=== PATIENT | male | born 1960 | race Caucasian/White ===

== ENCOUNTER 2023-05-03 02:37 | Inpatient (IN) | payer OTHER ==
[2023-05-03] MEDS ORDERED: cefTRIAXone (ROCEPHIN) 1 GM VIAL ONE (03:05)
[2023-05-03 04:05] LABS: #Basophils 0.1 10x3/uL (0.0-0.2); #Eosinphils 0.3 10x3/uL (0.0-0.5); #Monocytes 2.1 10x3/uL (0.0-1.1); #Neutrophils 11.3 10x3/uL (1.5-8.4); %Basophils 0.5 % (0.0-2.0); %Eosinophils 1.5 % (0.0-6.0); %Lymphocytes 13.6 % (18.0-47.0); %Monocytes 12.9 % (0.0-10.0); %Neutrophils 69.7 % (40.0-75.0); Hematocrit 38.1 % (38.8-50.0); Hemoglobin 13.6 g/dL (13.5-17.5); Mean Corpuscular HGB CONC 35.7 g/dL (32.0-36.0); Mean Corpuscular Hemoglobin 31.1 pg (27.0-33.0); Mean Corpuscular Volume 87.2 fl (81.2-95.1); Mean Platelet Volume 10.8 fl (7.4-10.4); Platelet Count 281 10x3/uL (150-450); RBC Distribution Width 12.3 % (11.5-14.5); Red Blood Cell (RBC) Count 4.37 10x6/uL (4.32-5.72); White Blood Cell (WBC) Count 16.2 10x3/uL (3.5-10.5)
[2023-05-03 04:28] LABS: Anion Gap 16 mmol/L (10-20); BUN (Urea Nitrogen) 12 mg/dL (8.4-25.7); Calc. Creatinine Clearance 0 mL/min (70-130); Calcium 8.9 mg/dL (7.8-10.44); Carbon Dioxide 25 mmol/L (23-31); Chloride 96 mmol/L (98-107); Estimated GFR 99; Glucose 132 mg/dL (80-115); Potassium 2.9 mmol/L (3.5-5.1); Sodium 134 mmol/L (136-145)
[2023-05-03] MEDS ORDERED: Potassium Chloride 20 MEQ TAB ONE (06:06)
[2023-05-03] MEDS ORDERED: Potassium Chloride 20 MEQ (100 mL) BAG ONE (06:07)
[2023-05-03] MEDS ORDERED: Ipratropium/Albuterol 3 ML NEB NEB PRN (08:10)
[2023-05-03] MEDS ORDERED: Calcium Carbonate 500 MG ChewTAB PO PRN (08:11)
[2023-05-03] MEDS ORDERED: Ondansetron ODT 4 MG TAB PO PRN (08:11)
[2023-05-03] MEDS ORDERED: Ondansetron PF 4 MG/2 ML Vial IVP PRN (08:11)
[2023-05-03] MEDS ORDERED: Senokot S 8.6-50 MG TAB PO PRN (08:11)
[2023-05-03 08:23] LABS: Magnesium 1.9 mg/dL (1.6-2.6); Phosphorus 3.4 mg/dL (2.3-4.7)
[2023-05-03] MEDS ORDERED: Ventolin HFA Inhaler 60 PUFF INHALER INH PRN (12:27)
[2023-05-03] MEDS ORDERED: Potassium Chloride 20 MEQ TAB PO SCH (12:30)
[2023-05-03 12:47] VITALS: BMI 46.3
[2023-05-03] MEDS ORDERED: VANCOMYCIN 2 GRAM/400 ML BAG 2 GM in Premix 1 BAG IVPB SCH (14:00)
[2023-05-03] MEDS ORDERED: Ipratropium/Albuterol 3 ML NEB NEB SCH (14:30)
[2023-05-03] MEDS: Furosemide 40 MG TAB PO SCH (14:41)
[2023-05-03] MEDS: Saccharomyces boulardii 250 MG CAP PO SCH (14:41)
[2023-05-03] MEDS: Cefepime 2 GM in Sodium Chloride 0.9% 100 ML IVPB SCH (14:42)
[2023-05-03] MEDS: Ipratropium Bromide 2.5 ml Neb NEB SCH ×2 (15:45→20:06)
[2023-05-03] MEDS ORDERED: Magnesium 2 GM/50 ML(in water) 2 GM in Premix 1 BAG IVPB SCH (16:00)
[2023-05-03 16:29] LABS: Potassium 3.5 mmol/L (3.5-5.1)
[2023-05-03] MEDS: Potassium Chloride 20 MEQ TAB PO SCH (17:07)
[2023-05-03] MEDS: Carvedilol 6.25 MG TAB PO SCH (18:07)
[2023-05-03] MEDS ORDERED: Budesonide 0.5 MG/2 ML NEB INH SCH (18:30)
[2023-05-03] MEDS: Mometasone 100 MCG/PUFF (1 INHALER) INH SCH (20:06)
[2023-05-03] MEDS ORDERED: cefTRIAXone\\ROCEPHIN 2 GM in Sodium Chloride 0.9% 100 ML IVPB SCH (21:00)
[2023-05-03] MEDS: Enoxaparin 40 MG (0.4 mL) SYRINGE SC SCH (21:30)
[2023-05-03] MEDS: Atorvastatin Calcium 40 MG TAB PO SCH (21:30)
[2023-05-04] MEDS: Cefepime 2 GM in Sodium Chloride 0.9% 100 ML IVPB SCH ×2 (00:29→13:32)
[2023-05-04] MEDS: VANCOMYCIN 1.75 GM/350 ML BAG 1.75 GM in Premix 1 BAG IVPB SCH ×2 (01:25→13:53)
[2023-05-04] MEDS: Acetaminophen 325 MG TAB PO PRN ×2 (02:53→20:47)
[2023-05-04 06:20] LABS: #Basophils 0.2 10x3/uL (0.0-0.2); #Eosinphils 0.4 10x3/uL (0.0-0.5); #Neutrophils 11.3 10x3/uL (1.5-8.4); %Basophils 0.8 % (0.0-2.0); %Eosinophils 2.1 % (0.0-6.0); %Lymphocytes 17.1 % (18.0-47.0); %Monocytes 11.5 % (0.0-10.0); Hematocrit 39.1 % (38.8-50.0); Hemoglobin 13.8 g/dL (13.5-17.5); Mean Corpuscular HGB CONC 35.3 g/dL (32.0-36.0); Mean Corpuscular Hemoglobin 31.7 pg (27.0-33.0); Mean Corpuscular Volume 89.7 fl (81.2-95.1); Mean Platelet Volume 11.3 fl (7.4-10.4); Platelet Count 307 10x3/uL (150-450); RBC Distribution Width 12.6 % (11.5-14.5); Red Blood Cell (RBC) Count 4.36 10x6/uL (4.32-5.72); White Blood Cell (WBC) Count 17.7 10x3/uL (3.5-10.5)
[2023-05-04] MEDS: Ipratropium Bromide 2.5 ml Neb NEB SCH ×4 (07:15→20:10)
[2023-05-04] MEDS: Mometasone 100 MCG/PUFF (1 INHALER) INH SCH ×2 (07:20→20:10)
[2023-05-04] MEDS: Lisinopril 20 MG TAB PO SCH (08:50)
[2023-05-04] MEDS: Loratadine 10 MG TAB PO SCH (08:51)
[2023-05-04] MEDS: Potassium Chloride 20 MEQ TAB PO SCH ×3 (08:51→17:52)
[2023-05-04] MEDS: Furosemide 40 MG TAB PO SCH ×2 (08:51→13:33)
[2023-05-04] MEDS: Carvedilol 6.25 MG TAB PO SCH ×2 (08:51→17:52)
[2023-05-04] MEDS ORDERED: OMEPRAZOLE 20 MG PO SCH (09:00)
[2023-05-04 09:43] LABS: ALT (SGPT) 39 U/L (8-55); AST (SGOT) 39 U/L (5-34); Albumin 3.4 g/dL (3.4-4.8); Alkaline Phosphatase 83 U/L (40-110); Anion Gap 19 mmol/L (10-20); BUN (Urea Nitrogen) 12 mg/dL (8.4-25.7); Bilirubin, Total 1.3 mg/dL (0.2-1.2); Calc. Creatinine Clearance 202 mL/min (70-130); Calcium 9.1 mg/dL (7.8-10.44); Carbon Dioxide 22 mmol/L (23-31); Chloride 99 mmol/L (98-107); Estimated GFR 103; Glucose 155 mg/dL (80-115); Magnesium 2.4 mg/dL (1.6-2.6); Potassium 3.5 mmol/L (3.5-5.1); Protein, Total 7.4 g/dL (5.8-8.1); Sodium 136 mmol/L (136-145)
[2023-05-04] MEDS: Saccharomyces boulardii 250 MG CAP PO SCH (13:33)
[2023-05-04 15:11] LABS: Hemoglobin A1c 6.1 % (4.0-6.0)
[2023-05-04] MEDS: Ibuprofen 200 MG TAB PO PRN (20:46)
[2023-05-04] MEDS: Atorvastatin Calcium 40 MG TAB PO SCH (20:49)
[2023-05-04] MEDS: Enoxaparin 40 MG (0.4 mL) SYRINGE SC SCH (20:49)
[2023-05-05 02:14] LABS: Vancomycin, Trough 13.6 ug/mL
[2023-05-05] MEDS: VANCOMYCIN 1.75 GM/350 ML BAG 1.75 GM in Premix 1 BAG IVPB SCH ×2 (02:55→14:40)
[2023-05-05 04:25] LABS: Hematocrit 36.9 % (38.8-50.0); Hemoglobin 12.7 g/dL (13.5-17.5); Mean Corpuscular HGB CONC 34.4 g/dL (32.0-36.0); Mean Corpuscular Hemoglobin 30.8 pg (27.0-33.0); Mean Corpuscular Volume 89.6 fl (81.2-95.1); Mean Platelet Volume 10.5 fl (7.4-10.4); Platelet Count 312 10x3/uL (150-450); RBC Distribution Width 12.5 % (11.5-14.5); Red Blood Cell (RBC) Count 4.12 10x6/uL (4.32-5.72); White Blood Cell (WBC) Count 15.6 10x3/uL (3.5-10.5)
[2023-05-05 04:33] LABS: Anion Gap 14 mmol/L (10-20); BUN (Urea Nitrogen) 12 mg/dL (8.4-25.7); Calc. Creatinine Clearance 205 mL/min (70-130); Calcium 8.5 mg/dL (7.8-10.44); Carbon Dioxide 25 mmol/L (23-31); Chloride 96 mmol/L (98-107); Estimated GFR 103; Glucose 116 mg/dL (80-115); Potassium 3.5 mmol/L (3.5-5.1); Sodium 131 mmol/L (136-145)
[2023-05-05 04:36] LABS: MDiff Complete? YES
[2023-05-05 05:12] LABS: Platelet Adequacy Comment Appears Adequate; RBC Morph Comment Within Normal Limits
[2023-05-05 05:14] LABS: Band 8 % (5-11); Eosinophils 5 % (0-10); Lymphocytes 20 % (21-51); Monocytes 9 % (0-10); Neutrophil 56 % (42-75); Reactive Lymphocytes 2 % (0-10)
[2023-05-05] MEDS: Mometasone 100 MCG/PUFF (1 INHALER) INH SCH ×2 (06:58→19:22)
[2023-05-05] MEDS: Ipratropium Bromide 2.5 ml Neb NEB SCH ×4 (06:58→19:22)
[2023-05-05] MEDS: Lisinopril 20 MG TAB PO SCH (09:04)
[2023-05-05] MEDS: Potassium Chloride 20 MEQ TAB PO SCH ×3 (09:05→16:45)
[2023-05-05] MEDS: Acetaminophen 325 MG TAB PO PRN ×2 (09:05→21:26)
[2023-05-05] MEDS: Carvedilol 6.25 MG TAB PO SCH ×2 (09:05→16:45)
[2023-05-05] MEDS: Loratadine 10 MG TAB PO SCH (09:05)
[2023-05-05] MEDS: Furosemide 40 MG TAB PO SCH ×2 (09:05→14:40)
[2023-05-05] MEDS: Ibuprofen 200 MG TAB PO PRN ×3 (11:46→23:55)
[2023-05-05] MEDS: Saccharomyces boulardii 250 MG CAP PO SCH (14:40)
[2023-05-05] MEDS: Enoxaparin 40 MG (0.4 mL) SYRINGE SC SCH (21:27)
[2023-05-05] MEDS: Atorvastatin Calcium 40 MG TAB PO SCH (21:27)
[2023-05-06] MEDS: VANCOMYCIN 1.75 GM/350 ML BAG 1.75 GM in Premix 1 BAG IVPB SCH ×2 (01:59→15:15)
[2023-05-06] MEDS: Acetaminophen 325 MG TAB PO PRN ×3 (01:59→22:37)
[2023-05-06] MEDS: Ibuprofen 200 MG TAB PO PRN ×2 (05:46→15:41)
[2023-05-06 05:54] LABS: Hematocrit 38.6 % (38.8-50.0); Hemoglobin 13.7 g/dL (13.5-17.5); Mean Corpuscular HGB CONC 35.5 g/dL (32.0-36.0); Mean Corpuscular Hemoglobin 31.9 pg (27.0-33.0); Mean Corpuscular Volume 89.8 fl (81.2-95.1); Mean Platelet Volume 10.6 fl (7.4-10.4); Platelet Count 395 10x3/uL (150-450); RBC Distribution Width 12.4 % (11.5-14.5); White Blood Cell (WBC) Count 14.9 10x3/uL (3.5-10.5)
[2023-05-06 05:56] LABS: ALT (SGPT) 55 U/L (8-55); AST (SGOT) 36 U/L (5-34); Albumin 3.1 g/dL (3.4-4.8); Alkaline Phosphatase 70 U/L (40-110); Anion Gap 15 mmol/L (10-20); BUN (Urea Nitrogen) 9 mg/dL (8.4-25.7); Bilirubin, Total 0.6 mg/dL (0.2-1.2); Calc. Creatinine Clearance 196 mL/min (70-130); Calcium 8.9 mg/dL (7.8-10.44); Carbon Dioxide 25 mmol/L (23-31); Chloride 100 mmol/L (98-107); Estimated GFR 102; Globulin 4.1 g/dL (2.4-3.5); Glucose 108 mg/dL (80-115); Protein, Total 7.2 g/dL (5.8-8.1); Sodium 136 mmol/L (136-145)
[2023-05-06 06:34] LABS: MDiff Complete? YES
[2023-05-06 06:35] LABS: Platelet Adequacy Comment Appears Adequate; RBC Morph Comment Within Normal Limits
[2023-05-06 06:37] LABS: Band 9 % (5-11); Eosinophils 4 % (0-10); Lymphocytes 24 % (21-51); Monocytes 8 % (0-10); Neutrophil 55 % (42-75)
[2023-05-06] MEDS: Ipratropium Bromide 2.5 ml Neb NEB SCH ×4 (07:32→19:04)
[2023-05-06] MEDS: Mometasone 100 MCG/PUFF (1 INHALER) INH SCH ×2 (07:37→19:04)
[2023-05-06] MEDS: Loratadine 10 MG TAB PO SCH (08:25)
[2023-05-06] MEDS: Furosemide 40 MG TAB PO SCH ×2 (08:25→15:14)
[2023-05-06] MEDS: Lisinopril 20 MG TAB PO SCH (08:25)
[2023-05-06] MEDS: Carvedilol 6.25 MG TAB PO SCH ×2 (08:25→16:42)
[2023-05-06] MEDS: Potassium Chloride 20 MEQ TAB PO SCH ×2 (08:26→16:43)
[2023-05-06 13:32] LABS: Vancomycin, Trough 11.7 ug/mL
[2023-05-06] MEDS: Saccharomyces boulardii 250 MG CAP PO SCH (15:14)
[2023-05-06] MEDS: cefTRIAXone\\ROCEPHIN 2 GM in Sodium Chloride 0.9% 100 ML IVPB SCH (15:14)
[2023-05-06] MEDS: Atorvastatin Calcium 40 MG TAB PO SCH (22:33)
[2023-05-06] MEDS: Enoxaparin 40 MG (0.4 mL) SYRINGE SC SCH (22:33)
[2023-05-07] MEDS: Ibuprofen 200 MG TAB PO PRN ×3 (00:17→22:19)
[2023-05-07] MEDS: VANCOMYCIN 1.75 GM/350 ML BAG 1.75 GM in Premix 1 BAG IVPB SCH ×2 (02:51→14:25)
[2023-05-07 06:52] LABS: Hematocrit 37.6 % (38.8-50.0); Hemoglobin 12.9 g/dL (13.5-17.5); Mean Corpuscular HGB CONC 34.3 g/dL (32.0-36.0); Mean Corpuscular Hemoglobin 31.4 pg (27.0-33.0); Mean Corpuscular Volume 91.5 fl (81.2-95.1); Mean Platelet Volume 10.3 fl (7.4-10.4); Platelet Count 390 10x3/uL (150-450); RBC Distribution Width 12.3 % (11.5-14.5); Red Blood Cell (RBC) Count 4.11 10x6/uL (4.32-5.72); White Blood Cell (WBC) Count 15.9 10x3/uL (3.5-10.5)
[2023-05-07 06:53] LABS: MDiff Complete? YES
[2023-05-07 07:01] LABS: Anion Gap 13 mmol/L (10-20); BUN (Urea Nitrogen) 7 mg/dL (8.4-25.7); Calc. Creatinine Clearance 225 mL/min (70-130); Calcium 8.8 mg/dL (7.8-10.44); Carbon Dioxide 28 mmol/L (23-31); Chloride 99 mmol/L (98-107); Estimated GFR 106; Glucose 115 mg/dL (80-115); Sodium 136 mmol/L (136-145)
[2023-05-07] MEDS: Ipratropium Bromide 2.5 ml Neb NEB SCH ×4 (07:01→20:25)
[2023-05-07] MEDS: Mometasone 100 MCG/PUFF (1 INHALER) INH SCH ×2 (07:03→20:25)
[2023-05-07] MEDS: Lisinopril 20 MG TAB PO SCH (08:00)
[2023-05-07] MEDS: Furosemide 40 MG TAB PO SCH (08:07)
[2023-05-07] MEDS: Potassium Chloride 20 MEQ TAB PO SCH ×2 (08:07→16:27)
[2023-05-07] MEDS: Carvedilol 6.25 MG TAB PO SCH ×2 (08:07→16:26)
[2023-05-07] MEDS: Loratadine 10 MG TAB PO SCH (08:08)
[2023-05-07 08:39] LABS: Band 4 % (5-11); Eosinophils 3 % (0-10); Lymphocytes 18 % (21-51); Monocytes 12 % (0-10); Neutrophil 63 % (42-75)
[2023-05-07 08:44] LABS: Platelet Adequacy Comment Appears Adequate; RBC Morph Comment Within Normal Limits
[2023-05-07] MEDS ORDERED: Iopamidol 300 61% 100 ML VIAL FS ONE (10:26)
[2023-05-07] MEDS: Saccharomyces boulardii 250 MG CAP PO SCH (14:59)
[2023-05-07] MEDS: cefTRIAXone\\ROCEPHIN 2 GM in Sodium Chloride 0.9% 100 ML IVPB SCH (15:00)
[2023-05-07] MEDS: Atorvastatin Calcium 40 MG TAB PO SCH (22:19)
[2023-05-07] MEDS: Enoxaparin 40 MG (0.4 mL) SYRINGE SC SCH (22:20)
[2023-05-08] MEDS: VANCOMYCIN 1.75 GM/350 ML BAG 1.75 GM in Premix 1 BAG IVPB SCH ×2 (02:55→14:53)
[2023-05-08 04:39] LABS: #Basophils 0.1 10x3/uL (0.0-0.2); #Eosinphils 0.3 10x3/uL (0.0-0.5); #Monocytes 1.6 10x3/uL (0.0-1.1); #Neutrophils 11.6 10x3/uL (1.5-8.4); %Basophils 0.6 % (0.0-2.0); %Eosinophils 1.7 % (0.0-6.0); %Lymphocytes 17.3 % (18.0-47.0); %Monocytes 9.1 % (0.0-10.0); %Neutrophils 67.7 % (40.0-75.0); Hemoglobin 12.6 g/dL (13.5-17.5); Mean Corpuscular HGB CONC 34.1 g/dL (32.0-36.0); Mean Corpuscular Hemoglobin 31.3 pg (27.0-33.0); Mean Platelet Volume 10.8 fl (7.4-10.4); Platelet Count 394 10x3/uL (150-450); RBC Distribution Width 12.3 % (11.5-14.5); Red Blood Cell (RBC) Count 4.02 10x6/uL (4.32-5.72); White Blood Cell (WBC) Count 17.1 10x3/uL (3.5-10.5)
[2023-05-08 04:51] LABS: Anion Gap 14 mmol/L (10-20); BUN (Urea Nitrogen) 8 mg/dL (8.4-25.7); Calc. Creatinine Clearance 221 mL/min (70-130); Calcium 8.9 mg/dL (7.8-10.44); Carbon Dioxide 24 mmol/L (23-31); Chloride 99 mmol/L (98-107); Estimated GFR 106; Glucose 102 mg/dL (80-115); Sodium 133 mmol/L (136-145)
[2023-05-08] MEDS: Acetaminophen 325 MG TAB PO PRN ×4 (05:23→23:14)
[2023-05-08] MEDS: Ipratropium Bromide 2.5 ml Neb NEB SCH ×4 (06:55→19:55)
[2023-05-08] MEDS: Mometasone 100 MCG/PUFF (1 INHALER) INH SCH ×2 (09:52→19:55)
[2023-05-08] MEDS: Ibuprofen 200 MG TAB PO PRN ×2 (09:53→17:11)
[2023-05-08] MEDS: Loratadine 10 MG TAB PO SCH (09:54)
[2023-05-08] MEDS: Lisinopril 20 MG TAB PO SCH (09:54)
[2023-05-08] MEDS: Carvedilol 6.25 MG TAB PO SCH ×2 (09:54→17:12)
[2023-05-08] MEDS: Potassium Chloride 20 MEQ TAB PO SCH ×2 (09:55→17:12)
[2023-05-08] MEDS: Furosemide 40 MG TAB PO SCH ×2 (09:55→14:53)
[2023-05-08] MEDS: Enoxaparin 40 MG (0.4 mL) SYRINGE SC SCH ×2 (09:55→22:31)
[2023-05-08 13:30] LABS: Vancomycin, Trough 12.8 ug/mL
[2023-05-08] MEDS: Saccharomyces boulardii 250 MG CAP PO SCH (14:53)
[2023-05-08] MEDS: Atorvastatin Calcium 40 MG TAB PO SCH (22:31)
[2023-05-09] MEDS: VANCOMYCIN 1.75 GM/350 ML BAG 1.75 GM in Premix 1 BAG IVPB SCH ×2 (03:00→14:37)
[2023-05-09] MEDS: Ibuprofen 200 MG TAB PO PRN (03:15)
[2023-05-09 04:21] LABS: #Basophils 0.1 10x3/uL (0.0-0.2); #Eosinphils 0.3 10x3/uL (0.0-0.5); #Monocytes 1.4 10x3/uL (0.0-1.1); #Neutrophils 12.4 10x3/uL (1.5-8.4); %Basophils 0.6 % (0.0-2.0); %Eosinophils 1.6 % (0.0-6.0); %Lymphocytes 15.5 % (18.0-47.0); %Monocytes 8.3 % (0.0-10.0); %Neutrophils 71.6 % (40.0-75.0); Hematocrit 37.3 % (38.8-50.0); Hemoglobin 12.8 g/dL (13.5-17.5); Mean Corpuscular HGB CONC 34.3 g/dL (32.0-36.0); Mean Corpuscular Hemoglobin 31.4 pg (27.0-33.0); Mean Corpuscular Volume 91.6 fl (81.2-95.1); Mean Platelet Volume 10.4 fl (7.4-10.4); Platelet Count 447 10x3/uL (150-450); RBC Distribution Width 12.3 % (11.5-14.5); Red Blood Cell (RBC) Count 4.07 10x6/uL (4.32-5.72); White Blood Cell (WBC) Count 17.3 10x3/uL (3.5-10.5)
[2023-05-09 04:27] LABS: Anion Gap 13 mmol/L (10-20); BUN (Urea Nitrogen) 7 mg/dL (8.4-25.7); CRP (Inflammatory) 13.07 mg/dL (= or < 0.5); Calc. Creatinine Clearance 221 mL/min (70-130); Carbon Dioxide 26 mmol/L (23-31); Chloride 99 mmol/L (98-107); Estimated GFR 106; Glucose 111 mg/dL (80-115); Potassium 4.1 mmol/L (3.5-5.1); Sodium 134 mmol/L (136-145)
[2023-05-09] MEDS: Ipratropium Bromide 2.5 ml Neb NEB SCH ×4 (07:55→19:28)
[2023-05-09] MEDS: Mometasone 100 MCG/PUFF (1 INHALER) INH SCH ×2 (08:00→19:27)
[2023-05-09] MEDS: Furosemide 40 MG TAB PO SCH ×2 (09:18→14:37)
[2023-05-09] MEDS: Enoxaparin 40 MG (0.4 mL) SYRINGE SC SCH ×2 (09:18→21:51)
[2023-05-09] MEDS: Lisinopril 20 MG TAB PO SCH (09:18)
[2023-05-09] MEDS: Carvedilol 6.25 MG TAB PO SCH ×2 (09:18→16:57)
[2023-05-09] MEDS: Acetaminophen 325 MG TAB PO PRN ×2 (09:18→16:57)
[2023-05-09] MEDS: Potassium Chloride 20 MEQ TAB PO SCH ×2 (09:18→16:57)
[2023-05-09] MEDS: Loratadine 10 MG TAB PO SCH (09:20)
[2023-05-09] MEDS: Saccharomyces boulardii 250 MG CAP PO SCH (14:37)
[2023-05-09] MEDS: Atorvastatin Calcium 40 MG TAB PO SCH (21:50)
[2023-05-10] MEDS: VANCOMYCIN 1.75 GM/350 ML BAG 1.75 GM in Premix 1 BAG IVPB SCH ×2 (03:28→14:22)
[2023-05-10] MEDS: Acetaminophen 325 MG TAB PO PRN ×2 (03:29→14:17)
[2023-05-10] MEDS: Ibuprofen 200 MG TAB PO PRN ×3 (03:29→21:30)
[2023-05-10 03:59] LABS: #Basophils 0.1 10x3/uL (0.0-0.2); #Eosinphils 0.3 10x3/uL (0.0-0.5); #Monocytes 1.5 10x3/uL (0.0-1.1); #Neutrophils 11.7 10x3/uL (1.5-8.4); %Basophils 0.6 % (0.0-2.0); %Eosinophils 1.8 % (0.0-6.0); %Lymphocytes 15.4 % (18.0-47.0); %Neutrophils 71.2 % (40.0-75.0); Hemoglobin 12.8 g/dL (13.5-17.5); Mean Corpuscular HGB CONC 33.7 g/dL (32.0-36.0); Mean Corpuscular Hemoglobin 31.1 pg (27.0-33.0); Mean Corpuscular Volume 92.5 fl (81.2-95.1); Mean Platelet Volume 10.2 fl (7.4-10.4); Platelet Count 453 10x3/uL (150-450); RBC Distribution Width 12.2 % (11.5-14.5); Red Blood Cell (RBC) Count 4.11 10x6/uL (4.32-5.72); White Blood Cell (WBC) Count 16.4 10x3/uL (3.5-10.5)
[2023-05-10 04:06] LABS: Anion Gap 14 mmol/L (10-20); BUN (Urea Nitrogen) 7 mg/dL (8.4-25.7); Calc. Creatinine Clearance 218 mL/min (70-130); Calcium 9.1 mg/dL (7.8-10.44); Carbon Dioxide 26 mmol/L (23-31); Chloride 97 mmol/L (98-107); Estimated GFR 105; Glucose 110 mg/dL (80-115); Potassium 4.2 mmol/L (3.5-5.1); Sodium 133 mmol/L (136-145)
[2023-05-10] MEDS: Ipratropium Bromide 2.5 ml Neb NEB SCH ×4 (07:10→19:18)
[2023-05-10] MEDS: Mometasone 100 MCG/PUFF (1 INHALER) INH SCH ×2 (07:15→19:17)
[2023-05-10] MEDS: Potassium Chloride 20 MEQ TAB PO SCH ×2 (08:41→17:34)
[2023-05-10] MEDS: Carvedilol 6.25 MG TAB PO SCH ×2 (08:43→17:35)
[2023-05-10] MEDS: Lisinopril 20 MG TAB PO SCH (09:42)
[2023-05-10] MEDS: Furosemide 40 MG TAB PO SCH ×2 (09:43→14:23)
[2023-05-10] MEDS: Enoxaparin 40 MG (0.4 mL) SYRINGE SC SCH ×2 (09:43→21:08)
[2023-05-10] MEDS: Loratadine 10 MG TAB PO SCH (09:44)
[2023-05-10] MEDS: Saccharomyces boulardii 250 MG CAP PO SCH (14:23)
[2023-05-10] MEDS: Atorvastatin Calcium 40 MG TAB PO SCH (21:09)
[2023-05-11] MEDS: Acetaminophen 325 MG TAB PO PRN ×2 (00:25→13:53)
[2023-05-11] MEDS: VANCOMYCIN 1.75 GM/350 ML BAG 1.75 GM in Premix 1 BAG IVPB SCH ×2 (01:54→13:41)
[2023-05-11 04:23] LABS: #Basophils 0.1 10x3/uL (0.0-0.2); #Eosinphils 0.3 10x3/uL (0.0-0.5); #Monocytes 1.4 10x3/uL (0.0-1.1); #Neutrophils 9.8 10x3/uL (1.5-8.4); %Basophils 0.4 % (0.0-2.0); %Eosinophils 2.1 % (0.0-6.0); %Lymphocytes 19.3 % (18.0-47.0); %Monocytes 9.7 % (0.0-10.0); %Neutrophils 67.1 % (40.0-75.0); Hematocrit 37.8 % (38.8-50.0); Hemoglobin 12.8 g/dL (13.5-17.5); Mean Corpuscular HGB CONC 33.9 g/dL (32.0-36.0); Mean Corpuscular Hemoglobin 31.4 pg (27.0-33.0); Mean Corpuscular Volume 92.9 fl (81.2-95.1); Mean Platelet Volume 10.4 fl (7.4-10.4); Platelet Count 451 10x3/uL (150-450); RBC Distribution Width 12.1 % (11.5-14.5); Red Blood Cell (RBC) Count 4.07 10x6/uL (4.32-5.72); White Blood Cell (WBC) Count 14.6 10x3/uL (3.5-10.5)
[2023-05-11 04:44] LABS: Anion Gap 15 mmol/L (10-20); BUN (Urea Nitrogen) 10 mg/dL (8.4-25.7); Calc. Creatinine Clearance 221 mL/min (70-130); Calcium 8.9 mg/dL (7.8-10.44); Carbon Dioxide 25 mmol/L (23-31); Chloride 94 mmol/L (98-107); Estimated GFR 106; Glucose 99 mg/dL (80-115); Potassium 4.2 mmol/L (3.5-5.1); Sodium 130 mmol/L (136-145)
[2023-05-11] MEDS: Ipratropium Bromide 2.5 ml Neb NEB SCH ×4 (06:50→21:20)
[2023-05-11] MEDS: Mometasone 100 MCG/PUFF (1 INHALER) INH SCH ×2 (06:55→21:20)
[2023-05-11] MEDS: Enoxaparin 40 MG (0.4 mL) SYRINGE SC SCH ×2 (07:52→21:22)
[2023-05-11] MEDS: Carvedilol 6.25 MG TAB PO SCH ×2 (07:52→17:00)
[2023-05-11] MEDS: Furosemide 40 MG TAB PO SCH ×2 (07:52→13:44)
[2023-05-11] MEDS: Loratadine 10 MG TAB PO SCH (07:53)
[2023-05-11] MEDS: Potassium Chloride 20 MEQ TAB PO SCH ×2 (07:53→16:57)
[2023-05-11] MEDS: Lisinopril 20 MG TAB PO SCH (07:53)
[2023-05-11] MEDS: Ibuprofen 200 MG TAB PO PRN ×2 (07:56→19:11)
[2023-05-11] MEDS: Clotrimazole 1% Cream 15 GM TUBE TOP SCH (10:00)
[2023-05-11] MEDS: Saccharomyces boulardii 250 MG CAP PO SCH (13:44)
[2023-05-11] MEDS: Atorvastatin Calcium 40 MG TAB PO SCH (21:22)
[2023-05-12] MEDS: VANCOMYCIN 1.75 GM/350 ML BAG 1.75 GM in Premix 1 BAG IVPB SCH ×2 (02:06→14:43)
[2023-05-12] MEDS: Ibuprofen 200 MG TAB PO PRN ×2 (04:06→10:57)
[2023-05-12 05:07] LABS: #Basophils 0.1 10x3/uL (0.0-0.2); #Eosinphils 0.3 10x3/uL (0.0-0.5); #Monocytes 1.2 10x3/uL (0.0-1.1); #Neutrophils 7.8 10x3/uL (1.5-8.4); %Basophils 0.4 % (0.0-2.0); %Eosinophils 2.1 % (0.0-6.0); %Lymphocytes 22.1 % (18.0-47.0); %Neutrophils 63.9 % (40.0-75.0); Hematocrit 37.3 % (38.8-50.0); Hemoglobin 12.8 g/dL (13.5-17.5); Mean Corpuscular HGB CONC 34.3 g/dL (32.0-36.0); Mean Corpuscular Hemoglobin 31.6 pg (27.0-33.0); Mean Corpuscular Volume 92.1 fl (81.2-95.1); Mean Platelet Volume 9.9 fl (7.4-10.4); Platelet Count 453 10x3/uL (150-450); RBC Distribution Width 12.2 % (11.5-14.5); Red Blood Cell (RBC) Count 4.05 10x6/uL (4.32-5.72); White Blood Cell (WBC) Count 12.2 10x3/uL (3.5-10.5)
[2023-05-12 05:14] LABS: Anion Gap 14 mmol/L (10-20); BUN (Urea Nitrogen) 10 mg/dL (8.4-25.7); Calc. Creatinine Clearance 232 mL/min (70-130); Carbon Dioxide 28 mmol/L (23-31); Chloride 95 mmol/L (98-107); Estimated GFR 107; Glucose 105 mg/dL (80-115); Potassium 4.2 mmol/L (3.5-5.1); Sodium 133 mmol/L (136-145)
[2023-05-12] MEDS: Mometasone 100 MCG/PUFF (1 INHALER) INH SCH ×2 (07:20→19:26)
[2023-05-12] MEDS: Ipratropium Bromide 2.5 ml Neb NEB SCH ×4 (07:20→19:24)
[2023-05-12] MEDS: Lisinopril 20 MG TAB PO SCH (09:25)
[2023-05-12] MEDS: Enoxaparin 40 MG (0.4 mL) SYRINGE SC SCH ×2 (09:25→20:44)
[2023-05-12] MEDS: Loratadine 10 MG TAB PO SCH (09:26)
[2023-05-12] MEDS: Furosemide 40 MG TAB PO SCH ×2 (09:27→14:43)
[2023-05-12] MEDS: Clotrimazole 1% Cream 15 GM TUBE TOP SCH (09:31)
[2023-05-12] MEDS: Potassium Chloride 20 MEQ TAB PO SCH ×2 (09:56→14:44)
[2023-05-12] MEDS: Carvedilol 6.25 MG TAB PO SCH ×2 (09:57→14:43)
[2023-05-12] MEDS: Saccharomyces boulardii 250 MG CAP PO SCH (14:43)
[2023-05-12] MEDS: Acetaminophen 325 MG TAB PO PRN (14:44)
[2023-05-12] MEDS: Atorvastatin Calcium 40 MG TAB PO SCH (20:44)
[2023-05-12] MEDS: Melatonin 3 MG TAB PO PRN (20:44)
[2023-05-13] MEDS: Acetaminophen 325 MG TAB PO PRN ×2 (01:16→21:27)
[2023-05-13] MEDS: VANCOMYCIN 1.75 GM/350 ML BAG 1.75 GM in Premix 1 BAG IVPB SCH ×2 (01:17→14:36)
[2023-05-13] MEDS: Ibuprofen 200 MG TAB PO PRN ×2 (03:06→17:49)
[2023-05-13 03:49] LABS: #Basophils 0.1 10x3/uL (0.0-0.2); #Eosinphils 0.3 10x3/uL (0.0-0.5); #Monocytes 1.2 10x3/uL (0.0-1.1); #Neutrophils 7.2 10x3/uL (1.5-8.4); %Basophils 0.6 % (0.0-2.0); %Eosinophils 2.3 % (0.0-6.0); %Lymphocytes 22.4 % (18.0-47.0); %Monocytes 10.5 % (0.0-10.0); %Neutrophils 62.8 % (40.0-75.0); Hematocrit 37.2 % (38.8-50.0); Hemoglobin 12.6 g/dL (13.5-17.5); Mean Corpuscular HGB CONC 33.9 g/dL (32.0-36.0); Mean Corpuscular Hemoglobin 31.1 pg (27.0-33.0); Mean Corpuscular Volume 91.9 fl (81.2-95.1); Mean Platelet Volume 10.1 fl (7.4-10.4); Platelet Count 462 10x3/uL (150-450); RBC Distribution Width 12.2 % (11.5-14.5); Red Blood Cell (RBC) Count 4.05 10x6/uL (4.32-5.72); White Blood Cell (WBC) Count 11.5 10x3/uL (3.5-10.5)
[2023-05-13] MEDS: Ipratropium Bromide 2.5 ml Neb NEB SCH ×4 (07:38→18:59)
[2023-05-13] MEDS: Mometasone 100 MCG/PUFF (1 INHALER) INH SCH ×2 (07:40→18:59)
[2023-05-13] MEDS: Furosemide 40 MG TAB PO SCH ×2 (09:56→14:35)
[2023-05-13] MEDS: Potassium Chloride 20 MEQ TAB PO SCH ×2 (09:56→17:49)
[2023-05-13] MEDS: Carvedilol 6.25 MG TAB PO SCH ×2 (09:56→17:49)
[2023-05-13] MEDS: Lisinopril 20 MG TAB PO SCH (09:57)
[2023-05-13] MEDS: Loratadine 10 MG TAB PO SCH (09:57)
[2023-05-13] MEDS: Enoxaparin 40 MG (0.4 mL) SYRINGE SC SCH ×2 (09:57→21:27)
[2023-05-13] MEDS: Clotrimazole 1% Cream 15 GM TUBE TOP SCH ×2 (12:16→22:28)
[2023-05-13 13:41] LABS: Vancomycin, Trough 13.1 ug/mL
[2023-05-13] MEDS: Saccharomyces boulardii 250 MG CAP PO SCH (14:35)
[2023-05-13] MEDS: Atorvastatin Calcium 40 MG TAB PO SCH (21:27)
[2023-05-13] MEDS: Melatonin 3 MG TAB PO PRN (21:28)
[2023-05-14] MEDS: VANCOMYCIN 1.75 GM/350 ML BAG 1.75 GM in Premix 1 BAG IVPB SCH ×2 (01:45→15:21)
[2023-05-14 03:55] LABS: #Basophils 0.1 10x3/uL (0.0-0.2); #Eosinphils 0.3 10x3/uL (0.0-0.5); #Monocytes 1.3 10x3/uL (0.0-1.1); #Neutrophils 7.2 10x3/uL (1.5-8.4); %Basophils 0.8 % (0.0-2.0); %Eosinophils 2.4 % (0.0-6.0); %Lymphocytes 23.6 % (18.0-47.0); %Monocytes 10.6 % (0.0-10.0); %Neutrophils 61.1 % (40.0-75.0); Hematocrit 37.7 % (38.8-50.0); Mean Corpuscular HGB CONC 34.5 g/dL (32.0-36.0); Mean Corpuscular Hemoglobin 31.7 pg (27.0-33.0); Mean Platelet Volume 9.9 fl (7.4-10.4); Platelet Count 493 10x3/uL (150-450); RBC Distribution Width 12.2 % (11.5-14.5); White Blood Cell (WBC) Count 11.8 10x3/uL (3.5-10.5)
[2023-05-14 04:01] LABS: Anion Gap 13 mmol/L (10-20); BUN (Urea Nitrogen) 12 mg/dL (8.4-25.7); CRP (Inflammatory) 3.43 mg/dL (= or < 0.5); Calc. Creatinine Clearance 218 mL/min (70-130); Calcium 9.1 mg/dL (7.8-10.44); Carbon Dioxide 28 mmol/L (23-31); Chloride 91 mmol/L (98-107); Estimated GFR 105; Glucose 98 mg/dL (80-115); Potassium 4.2 mmol/L (3.5-5.1); Sodium 128 mmol/L (136-145)
[2023-05-14] MEDS: Mometasone 100 MCG/PUFF (1 INHALER) INH SCH ×2 (07:54→18:59)
[2023-05-14] MEDS: Ipratropium Bromide 2.5 ml Neb NEB SCH ×4 (07:55→19:00)
[2023-05-14] MEDS: Furosemide 40 MG TAB PO SCH ×2 (10:52→15:21)
[2023-05-14] MEDS: Loratadine 10 MG TAB PO SCH (10:52)
[2023-05-14] MEDS: Potassium Chloride 20 MEQ TAB PO SCH ×2 (10:52→16:52)
[2023-05-14] MEDS: Lisinopril 20 MG TAB PO SCH (10:53)
[2023-05-14] MEDS: Carvedilol 6.25 MG TAB PO SCH ×2 (10:53→16:52)
[2023-05-14] MEDS: Saccharomyces boulardii 250 MG CAP PO SCH (15:21)
[2023-05-14] MEDS: Clotrimazole 1% Cream 15 GM TUBE TOP SCH ×2 (15:21→22:49)
[2023-05-14] MEDS: Acetaminophen 325 MG TAB PO PRN ×2 (15:25→22:36)
[2023-05-14] MEDS: Atorvastatin Calcium 40 MG TAB PO SCH (22:36)
[2023-05-14] MEDS: Enoxaparin 40 MG (0.4 mL) SYRINGE SC SCH (22:36)
[2023-05-14] MEDS: Ibuprofen 200 MG TAB PO PRN (22:38)
[2023-05-14] MEDS: Melatonin 3 MG TAB PO PRN (22:42)
[2023-05-15] MEDS: VANCOMYCIN 1.75 GM/350 ML BAG 1.75 GM in Premix 1 BAG IVPB SCH ×2 (03:01→15:30)
[2023-05-15 04:50] LABS: #Basophils 0.1 10x3/uL (0.0-0.2); #Eosinphils 0.3 10x3/uL (0.0-0.5); #Monocytes 1.4 10x3/uL (0.0-1.1); #Neutrophils 6.4 10x3/uL (1.5-8.4); %Basophils 0.7 % (0.0-2.0); %Eosinophils 2.7 % (0.0-6.0); %Lymphocytes 22.7 % (18.0-47.0); %Monocytes 13.1 % (0.0-10.0); %Neutrophils 59.2 % (40.0-75.0); Hematocrit 39.4 % (38.8-50.0); Hemoglobin 13.3 g/dL (13.5-17.5); Mean Corpuscular HGB CONC 33.8 g/dL (32.0-36.0); Mean Corpuscular Hemoglobin 30.7 pg (27.0-33.0); Mean Platelet Volume 9.5 fl (7.4-10.4); Platelet Count 503 10x3/uL (150-450); RBC Distribution Width 12.5 % (11.5-14.5); Red Blood Cell (RBC) Count 4.33 10x6/uL (4.32-5.72); White Blood Cell (WBC) Count 10.8 10x3/uL (3.5-10.5)
[2023-05-15 05:00] LABS: Anion Gap 12 mmol/L (10-20); BUN (Urea Nitrogen) 14 mg/dL (8.4-25.7); Calc. Creatinine Clearance 191 mL/min (70-130); Calcium 8.8 mg/dL (7.8-10.44); Carbon Dioxide 31 mmol/L (23-31); Chloride 93 mmol/L (98-107); Estimated GFR 101; Glucose 101 mg/dL (80-115); Potassium 4.6 mmol/L (3.5-5.1); Sodium 131 mmol/L (136-145)
[2023-05-15] MEDS: Ipratropium Bromide 2.5 ml Neb NEB SCH ×4 (07:12→20:04)
[2023-05-15] MEDS: Mometasone 100 MCG/PUFF (1 INHALER) INH SCH ×2 (07:13→20:06)
[2023-05-15] MEDS: Loratadine 10 MG TAB PO SCH (10:35)
[2023-05-15] MEDS: Lisinopril 20 MG TAB PO SCH (10:35)
[2023-05-15] MEDS: Carvedilol 6.25 MG TAB PO SCH ×2 (10:35→19:58)
[2023-05-15] MEDS: Potassium Chloride 20 MEQ TAB PO SCH (10:35)
[2023-05-15] MEDS: Furosemide 40 MG TAB PO SCH ×2 (10:35→15:30)
[2023-05-15] MEDS: Enoxaparin 40 MG (0.4 mL) SYRINGE SC SCH ×2 (10:36→21:42)
[2023-05-15] MEDS: Clotrimazole 1% Cream 15 GM TUBE TOP SCH (11:24)
[2023-05-15] MEDS: Saccharomyces boulardii 250 MG CAP PO SCH (15:30)
[2023-05-15] MEDS: Atorvastatin Calcium 40 MG TAB PO SCH (21:43)
[2023-05-15] MEDS: Ibuprofen 200 MG TAB PO PRN (21:48)
[2023-05-15] MEDS: Melatonin 3 MG TAB PO PRN (21:49)
[2023-05-16] MEDS: VANCOMYCIN 1.75 GM/350 ML BAG 1.75 GM in Premix 1 BAG IVPB SCH ×2 (03:06→14:12)
[2023-05-16] MEDS: Mometasone 100 MCG/PUFF (1 INHALER) INH SCH ×2 (07:00→09:32)
[2023-05-16] MEDS: Ipratropium Bromide 2.5 ml Neb NEB SCH ×4 (07:00→15:20)
[2023-05-16] MEDS: Enoxaparin 40 MG (0.4 mL) SYRINGE SC SCH (08:46)
[2023-05-16] MEDS: Potassium Chloride 20 MEQ TAB PO SCH (08:49)
[2023-05-16] MEDS: Loratadine 10 MG TAB PO SCH (08:49)
[2023-05-16] MEDS: Carvedilol 6.25 MG TAB PO SCH ×2 (08:50→17:17)
[2023-05-16] MEDS: Furosemide 40 MG TAB PO SCH ×2 (08:50→14:20)
[2023-05-16] MEDS: Lisinopril 20 MG TAB PO SCH (08:50)
[2023-05-16] MEDS: Clotrimazole 1% Cream 15 GM TUBE TOP SCH (09:31)
[2023-05-16 12:21] VITALS: TEMP 99.5
[2023-05-16] MEDS: Acetaminophen 325 MG TAB PO PRN ×2 (13:48→14:13)
[2023-05-16] MEDS: Saccharomyces boulardii 250 MG CAP PO SCH (14:20)
[2023-05-16 17:18] VITALS: BP 136/79
[2023-05-16] MEDS: Ibuprofen 200 MG TAB PO PRN (17:20)
== END 2023-05-16 17:53 | disposition home or self-care (01) | DRG 872 ==
LOC: CSHERS 02:37 → SUATTDRO 02:37 → CSHTELE 09:45 → OBSVTOIN 12:12 → EEVIPCON 12:12
PROVIDERS: ADMIT Internal Medicine; ATTEND Internal Medicine
DX: A41.9 Sepsis, unspecified organism (principal); I50.32 Chronic diastolic (congestive) heart failure; L03.115 Cellulitis of right lower limb; E87.1 Hypo-osmolality and hyponatremia; Z68.42 Body mass index [BMI] 45.0-49.9, adult; J44.9 Chronic obstructive pulmonary disease, unspecified; I87.8 Other specified disorders of veins; I11.0 Hypertensive heart disease with heart failure; K21.9 Gastro-esophageal reflux disease without esophagitis; G47.33 Obstructive sleep apnea (adult) (pediatric); E87.6 Hypokalemia; E83.42 Hypomagnesemia; I87.2 Venous insufficiency (chronic) (peripheral); E66.01 Morbid (severe) obesity due to excess calories; R61 Generalized hyperhidrosis; B35.3 Tinea pedis; D64.9 Anemia, unspecified; Z79.899 Other long term (current) drug therapy; Z85.828 Personal history of other malignant neoplasm of skin; Z98.890 Other specified postprocedural states; Z87.891 Personal history of nicotine dependence
CPT/HCPCS: 36415; 36416; 80048; 80053; 80202; 83036; 83735; 84100; 85025; 85379; 86140; 87081; 94640; 94660; 94760; 94762; 96374; 96375; 97139; J0692; J0696; J1650; J3370; J3475; J3480; J3490; Q9967